=== PATIENT | male | born 1995 | race Asian ===

== ENCOUNTER 2017-10-25 10:47 | Emergency (ER) | payer OTHER ==
[~2017-10-25] VITALS: Ht 170.2 cm; Wt 90.5 kg
[2017-10-25 11:11] LABS: APPEARANCE,URINE CLEAR (CLEAR); GLUCOSE, URINE (UA) NEGATIVE (NEGATIVE); KETONES,URINE NEGATIVE (NEGATIVE); LEUKOCYTE ESTERASE ,URINE NEGATIVE (NEGATIVE); OCCULT BLOOD,URINE NEGATIVE (NEGATIVE); PROTEIN,URINE NEGATIVE (NEGATIVE)
[2017-10-25 11:15] LABS: ADD UA MICROSCOPIC NO
[2017-10-25 12:58] VITALS: BP 153/91
== END 2017-10-25 13:46 | disposition home or self-care (01) ==
LOC: EMS 10:49
DX: R82.90 Unspecified abnormal findings in urine (principal); R31.9 Hematuria, unspecified
CPT/HCPCS: 99283

== ENCOUNTER 2017-12-18 21:14 | Emergency (ER) | payer OTHER ==
[~2017-12-18] VITALS: Ht 170.2 cm; Wt 90.9 kg
[2017-12-18 23:05] LABS: INFLUENZA TYPE A NEGATIVE FOR TYPE A (NEGATIVE); INFLUENZA TYPE B NEGATIVE FOR TYPE B (NEGATIVE)
[2017-12-19 00:26] VITALS: BP 135/77
== END 2017-12-19 00:32 | disposition home or self-care (01) ==
LOC: EMS 21:25
DX: R05 Cough (principal); R09.81 Nasal congestion
CPT/HCPCS: 87804; 99285